=== PATIENT | female | born 1955 | race African-American/Black ===

== ENCOUNTER 2024-04-03 12:18 | Emergency (ER) | payer MEDICARE ==
[~2024-04-03] VITALS: Ht 165.1 cm; Wt 70.0 kg
[~2024-04-03 12:18] MED LIST: ATOR20TA PO; METF-414 PO; PRED2.5T4 PO
[2024-04-03 12:27] VITALS: BP 146/106; PULSE 77; RESP 16; TEMP 98; O2SAT 100
[2024-04-03 13:24] LABS: BASOPHILS % 0.6 % (0.0-2.0); EOSINOPHILS % 3.8 % (0.0-5.0); HEMATOCRIT. 41.3 % (36.0-48.0); HEMOGLOBIN. 13.3 g/dL (12.0-16.0); LYMPHOCYTES % 22.5 % (20.0-50.0); MEAN CORPUSCULAR HEMOGLOBIN 28.5 pg (28.0-32.0); MEAN CORPUSCULAR HGB CONC 32.2 g/dL (31.0-37.0); MEAN CORPUSCULAR VOLUME 88.4 fL (81.0-99.0); MEAN PLATELET VOLUME 8.8 fl (7.4-10.4); NEUTROPHILS % 67.1 % (40.0-76.0); PLATELET 281 x1000/uL (130-400); RED BLOOD CELL COUNT 4.67 mill/uL (4.2-5.4); RED CELL DISTRIBUTION WIDTH 14.5 % (11.6-14.6); WHITE BLOOD COUNT 7.5 x1000/uL (4.5-11.0)
[2024-04-03 13:49] LABS: D-DIMER 0.8 mg/L FEU (<0.50); PROTHROMBIN TIME 10.8 sec (9.6-11.0)
[2024-04-03 14:37] LABS: CHLORIDE 104 mEq/L (98-107); POTASSIUM 3.8 mEq/L (3.5-5.1); SODIUM 140 mEq/L (136-145)
[2024-04-03 14:38] LABS: CARBON DIOXIDE 29 mEq/L (21-32)
[2024-04-03 14:39] LABS: CALCIUM 9.6 mg/dL (8.7-10.4)
[2024-04-03 14:43] LABS: GLUCOSE 90 mg/dL (70-105); UREA NITROGEN BLOOD 12 mg/dL (9-23)
[2024-04-03 14:48] LABS: TROPONIN I HIGH SENSITIVITY < 4 ng/L (3.0-34)
== END 2024-04-03 15:41 | disposition home or self-care (01) ==
LOC: ER 12:51
DX: R55 Syncope and collapse (principal); I10 Essential (primary) hypertension; Z88.2 Allergy status to sulfonamides
CPT/HCPCS: 36415; 71045; 80048; 83880; 84484; 85025; 85379; 93005; 93971; 99285